=== PATIENT | female | born 1970 | race Two or more races ===

== ENCOUNTER 2018-01-03 10:15 | Emergency (ER) | payer SELFPAY ==
[~2018-01-03] VITALS: Ht 160 cm; Wt 54.4 kg
[~2018-01-03 10:15] MED LIST: ACETAMINOPHEN325 M1 ORAL; NKM; ZOFRAN4 MG ORAL
[2018-01-03] MEDS ORDERED: Morphine Sulfate 2mg/ml Inj IVP ONE (10:45)
[2018-01-03 10:53] LABS: APPEARANCE,URINE SLIGHTLY CLOUDY; BILIRUBIN, URINE NEGATIVE (NEGATIVE); COLOR,URINE YELLOW; GLUCOSE, URINE (UA) NEGATIVE (NEGATIVE); KETONES,URINE 3+ (NEGATIVE); LEUKOCYTE ESTERASE ,URINE NEGATIVE (NEGATIVE); NITRITE,URINE NEGATIVE (NEGATIVE); PH,URINE 5 (4.5-8.0); PROTEIN,URINE NEGATIVE (NEGATIVE); UROBILINOGEN,URINE NORMAL MG/DL (0.0-1.0)
[2018-01-03 10:59] LABS: HEMATOCRIT 43.4 % (37.0-47.0); HEMOGLOBIN 15.1 G/DL (12.0-16.0); MEAN CORPUSCULAR VOLUME 102 FL (80-99); PLATELET COUNT 176 K/UL (150-450); RED BLOOD COUNT 4.24 M/UL (4.20-5.40); RED CELL DISTRIBUTION WIDTH 11.2 % (11.6-14.8); WHITE BLOOD COUNT 8.8 K/UL (4.8-10.8)
[2018-01-03 11:04] LABS: INR 1.1 (0.9-1.1)
[2018-01-03 11:08] LABS: ANION GAP 9 mmol/L (5-15); BLOOD UREA NITROGEN 7 mg/dL (7-18); CALCIUM 8.9 MG/DL (8.5-10.1); CARBON DIOXIDE 25 MMOL/L (21-32); CHLORIDE 99 MMOL/L (98-107); CREATININE 0.7 MG/DL (0.55-1.30); POTASSIUM 3.6 MMOL/L (3.5-5.1); SODIUM 133 MMOL/L (136-145)
[2018-01-03 11:11] VITALS: BP 129/86
[2018-01-03 11:12] LABS: ALANINE AMINOTRANSFERASE 29 U/L (12-78); ALBUMIN 3.7 G/DL (3.4-5.0); ALBUMIN/GLOBULIN RATIO 0.9 (1.0-2.7); ALKALINE PHOSPHATASE 79 U/L (46-116); ASPARTATE AMINO TRANSFERASE 30 U/L (15-37)
--- NOTE | 2018-01-03 11:56 | Emergency Room Report ---
History of Present Illness General Chief Complaint: Abdominal Pain Source: Patient, Medical Record Present Illness HPI Patient presents with epigastric pain. This has been for at least 2 days. She has been drinking alcohol. She feels overwhelming nausea and has been vomiting. She denies blood or melena. She has had this problem once before 3 years ago - was diagnosed with gastritis. No fevers or chills. No dysuria. She feels weak with the nausea. No LOC or dizziness. Epigastric pain rated 8/ 10 not radiating, burning. No h/o seizures, DTs, bleeding problems. LNMP 3 weeks ago. 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 Last Menstrual Period: 2 weeks ago Reviewed Nursing Documentation: PMH: Agreed; PSxH: Agreed Nursing Documentation-PMH Past Medical History: No History, Except For Hx Gastrointestinal Problems: Yes - GASTRITIS, alcohol abuse Review of Systems All Other Systems: negative except mentioned in HPI Physical Exam Vital Signs Date Time Temp Pulse Resp B/P (MAP) Pulse Ox O2 Delivery O2 Flow Rate FiO2 01/03/18 10:21 97.0 84 14 129/86 98 Room Air 97.0 Sp02 EP Interpretation: reviewed, normal General Appearance: alert, GCS 15, mild distress Head: normocephalic Eyes: bilateral eye normal inspection, bilateral eye PERRL ENT: moist mucus membranes Neck: supple Respiratory: lungs clear, normal breath sounds Cardiovascular #1: regular rate, rhythm Cardiovascular #2: 2+ radial (R) Gastrointestinal: normal inspection, normal bowel sounds, no mass, non- distended, no guarding, no rebound, tenderness - epigastric Genitourinary: no CVA tenderness Musculoskeletal: back normal, gait/station normal, normal range of motion Neurologic: alert, oriented x3, grossly normal Psychiatric: anxious Skin: normal inspection, warm/dry Medical Decision Making Diagnostic Impression: Primary Impression: Gastritis Qualified Codes: K29.20 - Alcoholic gastritis without bleeding Additional Impression: Alcohol abuse ER Course Patient presents with NV and epigastric pain. DDx: gastritis, pancreatitis, GERD, GItis amongst others. Evaluation with labs. Treatment with IV hydration , Pepcid, Zofran and small dose of morphine. Labs with normal WBC and H/H. CMP with min elevated glucose. Lipase normal. Still with nausea. Reglan and benadryl added. Patient improved. Discussed treatment plan and need to stop alcohol. Patient stable for outpatient observation and treatment Laboratory Tests Test 01/03/18 10:25 White Blood Count 8.8 K/UL (4.8-10.8) Red Blood Count 4.24 M/UL (4.20-5.40) Hemoglobin 15.1 G/DL (12.0-16.0) Hematocrit 43.4 % (37.0-47.0) Mean Corpuscular Volume 102 FL (80-99) H Mean Corpuscular Hemoglobin 35.7 PG (27.0-31.0) H Mean Corpuscular Hemoglobin Concent 34.9 G/DL (32.0-36.0) Red Cell Distribution Width 11.2 % (11.6-14.8) L Platelet Count 176 K/UL (150-450) Mean Platelet Volume 7.5 FL (6.5-10.1) Neutrophils (%) (Auto) % (45.0-75.0) Lymphocytes (%) (Auto) % (20.0-45.0) Monocytes (%) (Auto) % (1.0-10.0) Eosinophils (%) (Auto) % (0.0-3.0) Basophils (%) (Auto) % (0.0-2.0) Differential Total Cells Counted 100 Neutrophils % (Manual) 92 % (45-75) H Lymphocytes % (Manual) 3 % (20-45) L Monocytes % (Manual) 4 % (1-10) Eosinophils % (Manual) 0 % (0-3) Basophils % (Manual) 0 % (0-2) Band Neutrophils 1 % (0-8) Platelet Estimate Adequate Platelet Morphology Normal Macrocytosis 1+ Prothrombin Time 11.2 SEC (9.30-11.50) Prothrombin Time INR 1.1 (0.9-1.1) PTT 29 SEC (23-33) Urine Color Yellow Urine Appearance Slightly cloudy Urine pH 5 (4.5-8.0) Urine Specific [place] 1.020 (1.005-1.035) Urine Protein Negative (NEGATIVE) Urine Glucose (UA) Negative (NEGATIVE) Urine Ketones 3+ (NEGATIVE) H Urine Blood 2+ (NEGATIVE) H Urine Nitrite Negative (NEGATIVE) Urine Bilirubin Negative (NEGATIVE) Urine Urobilinogen Normal MG/DL (0.0-1.0) Urine Leukocyte Esterase Negative (NEGATIVE) Urine RBC 2-4 /HPF (0 - 2) H Urine WBC 2-4 /HPF (0 - 2) Urine Squamous Epithelial Cells Few /LPF (NONE/OCC) Urine Bacteria Few /HPF (NONE) Urine HCG, Qualitative Negative (NEGATIVE) Sodium Level 133 MMOL/L (136-145) L Potassium Level 3.6 MMOL/L (3.5-5.1) Chloride Level 99 MMOL/L (98-107) Carbon Dioxide Level 25 MMOL/L (21-32) Anion Gap 9 mmol/L (5-15) Blood Urea Nitrogen 7 mg/dL (7-18) Creatinine 0.7 MG/DL (0.55-1.30) Estimate Glomerular Filtration Rate > 60 mL/min (>60) Glucose Level 111 MG/DL (74-106) H Calcium Level 8.9 MG/DL (8.5-10.1) Total Bilirubin 1.0 MG/DL (0.2-1.0) Aspartate Amino Transferase (AST) 30 U/L (15-37) Alanine Aminotransferase (ALT) 29 U/L (12-78) Alkaline Phosphatase 79 U/L (46-116) Total Protein 7.6 G/DL (6.4-8.2) Albumin 3.7 G/DL (3.4-5.0) Globulin 3.9 g/dL Albumin/Globulin Ratio 0.9 (1.0-2.7) L Lipase 50 U/L (73-393) L EKG Diagnostic Results Rate: bradycardiac Rhythm: other ST Segments: no acute changes Rhythm Strip Diag. Results EP Interpretation: yes Rhythm: no PVC's, no ectopy, other - mukul Last Vital Signs Date Time Temp Pulse Resp B/P (MAP) Pulse Ox O2 Delivery O2 Flow Rate FiO2 01/03/18 15:01 98.2 91 17 125/84 98 Room Air 98.2 Status: improved Disposition: HOME, SELF-CARE Condition: Improved Scripts Famotidine (PEPCID AC) 20 Mg Tablet 20 MG PO DAILY, #30 TAB Prov: Phillip Morgan M.D. 01/03/18 Ondansetron Odt* (ZOFRAN ODT*) 4 Mg Tab.rapdis 4 MG BC EVERY 8 HOURS, #6 TAB 1 Refill Prov: Phillip Morgan M.D. 01/03/18 Referrals: NOT CHOSEN [facility]/,REFERRING (PCP) Phillip Morgan M.D. Jan 03, 2018 11:55
[2018-01-03] MEDS ORDERED: Metoclopramide 10mg/2ml Inj IVP ONE (14:15)
[2018-01-03] MEDS ORDERED: DiphenhydrAMINE 50mg/ml Inj IVP ONE (14:15)
[2018-01-03] MEDS ORDERED: ONDANSETRON ODT4 MG BC (14:39)
[2018-01-03] MEDS ORDERED: PEPCID AC20 M2 PO (14:39)
[2018-01-03 14:41] VITALS: BP 125/84
[2018-01-03 15:01] VITALS: BP 125/84
== END 2018-01-03 15:15 | disposition home or self-care (01) ==
LOC: EMR 11:28
DX: K29.20 Alcoholic gastritis without bleeding (principal); F10.10 Alcohol abuse, uncomplicated
CPT/HCPCS: 36415; 80053; 81003; 81025; 83690; 85007; 85025; 85610; 85730; 93005; 96361; 96374; 96375; 99284; G0480; J1200; J2270; J2405; J2765; S0028; 80329

== ENCOUNTER 2019-03-15 00:08 | Emergency (ER) | payer SELFPAY ==
[~2019-03-15] VITALS: Ht 160 cm; Wt 66.2 kg
[~2019-03-15 00:08] MED LIST changes: +ONDANSETRON ODT4 MG BC; +PEPCID AC20 M2 PO
[2019-03-15 00:20] VITALS: BP 139/80
[2019-03-15 01:15] VITALS: BP 132/79
[2019-03-15] MEDS ORDERED: BACTRIM DS TAB1 EAC1 ORAL (01:23)
[2019-03-15] MEDS ORDERED: CEPHALEXIN500 M1 ORAL (01:23)
--- NOTE | 2019-03-15 01:24 | Emergency Room Report ---
History of Present Illness General Chief Complaint: Skin Rash/Abscess Source: Patient Present Illness HPI 48-year-old female who fell 1 week ago and sustained a laceration to left knee who presents with pain and mild yellow drainage surrounding wound. Patient did not seek any care, sutures or procedures to close wound. Patient has been cleaning it with hydroperoxide soap and water, and using Neosporin. Patient has no medical conditions. Patient states she is able to move and walk on the leg however it hurts when she stretches the knee as the wound starts to reopen. She also now noted some mild erythema surrounding the wound Allergies: Coded Allergies: No Known Allergies (Unverified , 11/28/12) Patient History Last Menstrual Period: menopause Nursing Documentation-[facility] Past Medical History: No History, Except For Hx Gastrointestinal Problems: Yes - GASTRITIS, alcohol abuse Review of Systems Constitutional: Denies: chills, fever Respiratory: Denies: cough, shortness of breath Cardiovascular: Denies: chest pain, palpitations Gastrointestinal: Denies: diarrhea, vomiting Genitourinary: Denies: hematuria, pain Musculoskeletal: Denies: joint swelling Skin: Reports: change in color, other - Wound; Denies: rash, lesions Neurological: Denies: headache, dizziness Physical Exam Vital Signs Date Time Temp Pulse Resp B/P (MAP) Pulse Ox O2 Delivery O2 Flow Rate FiO2 03/15/19 00:18 98.1 84 18 139/80 (99) 99 Room Air Sp02 EP Interpretation: reviewed General Appearance: well appearing, no apparent distress, non-toxic Head: normocephalic, atraumatic Eyes: bilateral eye normal inspection ENT: hearing grossly normal, EOM grossly intact, moist mucus membranes Neck: supple Respiratory: lungs clear, normal breath sounds, no respiratory distress, speaking full sentences Cardiovascular #1: regular rate, rhythm, normal capillary refill Cardiovascular #2: 2+ radial (R), 2+ radial (L) Gastrointestinal: soft, non-distended Rectal: deferred Musculoskeletal: normal range of motion, no calf tenderness, moves extm spontaneously, no lower extremity edema, other - Left knee with full range of motion, no effusion, no increased warmth to touch, Neurologic: grossly normal Psychiatric: mood/affect normal Skin: warm/dry, normal turgor, other - 3 cm irregular laceration over anterior left knee with 1 cm of surrounding erythema in all directions, no active drainage, no active bleeding, mild tenderness to palpation Medical Decision Making Diagnostic Impression: Primary Impression: Wound infection Additional Impression: Knee laceration ER Course Noted left knee wound status post fall with mild surrounding erythema concerning for wound infection. Patient has no fever or signs of extending cellulitis. Patient has no signs of infection into the joint space as there is full range of motion of the left knee, and no edema. Patient reports pain with flexion of the knee on the skin surface when she feels the wound reopening. Patient has no active bleeding at this time or active discharge. Patient stable for outpatient follow-up and recommended oral antibiotics at this time patient is to return for wound check in 2 days. Patient understands instructions and clear return precautions Last Vital Signs Date Time Temp Pulse Resp B/P (MAP) Pulse Ox O2 Delivery O2 Flow Rate FiO2 03/15/19 00:18 98.1 84 18 139/80 (99) 99 Room Air Disposition: HOME, SELF-CARE Condition: Stable Scripts Cephalexin* (KEFLEX*) 500 Mg Tablet 500 MG ORAL EVERY 6 HOURS for 7 Days, #28 CAP Prov: Avel Burns M.D. 03/15/19 Trimethoprim/Sulfamethoxazole 160/800* (BACTRIM DS TABLET*) 1 Each Tablet 1 TAB ORAL Q12H for 7 Days, #14 TAB 0 Refills Prov: Avel Burns M.D. 03/15/19 Referrals: NOT CHOSEN [facility]/,REFERRING (PCP) Patient Instructions: Wound Check, Wound Dehiscence, [id number] Additional Instructions: Return to emergency room in 2 days for wound check. Recommend close follow-up with primary care doctor to reevaluate wound and change antibiotics as needed. If unable to move left knee joint or bend fully return to emergency room immediately because there is a concern for infection to move to bloodstream or joint space Avel Burns M.D. Mar 15, 2019 01:24
[2019-03-15] MEDS ORDERED: Bactrim-DS 1 tab ORAL ONE (01:30)
[2019-03-15] MEDS ORDERED: Cephalexin 500mg cap ORAL ONE (01:30)
== END 2019-03-15 01:15 | disposition home or self-care (01) ==
LOC: EMR 00:33
DX: S81.012A Laceration without foreign body, left knee, initial encounter (principal); L08.9 Local infection of the skin and subcutaneous tissue, unspecified; X58.XXXA Exposure to other specified factors, initial encounter; Y92.9 Unspecified place or not applicable
CPT/HCPCS: 99282